=== PATIENT | male | born 1995 | race Caucasian/White ===

== ENCOUNTER 2017-12-25 23:52 | Emergency (ER) | payer MEDICAID ==
[~2017-12-25] VITALS: Ht 185.4 cm; Wt 98.1 kg
[2017-12-26 00:05] VITALS: Ht 185.4 cm; Wt 98.1 kg
[2017-12-26 07:00] VITALS: BP 147/89
== END 2017-12-26 06:58 | disposition home or self-care (01) ==
LOC: ED 23:52
DX: M79.671 Pain in right foot (principal)

== ENCOUNTER 2018-05-17 13:54 | Emergency (ER) | payer OTHER ==
[~2018-05-17] VITALS: Ht 182.9 cm; Wt 93.9 kg
[2018-05-17 14:03] VITALS: Ht 182.9 cm; Wt 93.9 kg
[2018-05-17 15:03] LABS: microscopic required? NO
[2018-05-17 15:11] LABS: UA SPECIFIC GRAVITY 1.015 (1.005-1.035); urine erythrocyte NEGATIVE (NEGATIVE)
[2018-05-17 15:12] LABS: BASOPHIL % 0.4 % (0-2); PLATELET COUNT 240 x10^3mcL (130-400)
[2018-05-17 15:21] LABS: AMPHETAMINE QUAL UR NONE DETECTED (See below)
[2018-05-17 15:29] LABS: CALCIUM 8.9 mg/dL (8.5-10.1); CARBON DIOXIDE 29.6 mmol/L (21-32); CHLORIDE SERUM 105 mmol/L (98-107); GFR1 > 60 mL/min; GLUCOSE SERUM 89 mg/dL (74-106); POTASSIUM SERUM 3.4 mmol/L (3.5-5.1); SODIUM SERUM 141 mmol/L (136-145)
[2018-05-17 15:36] LABS: ALBUMIN 4.1 g/dL (3.4-5.0); ALKALINE PHOSPHATASE 73 U/L (46-116); ALT/SGPT 42 U/L (16-63); AST/SGOT 26 U/L (15-37); BILIRUBIN TOTAL 0.75 mg/dL (0.20-1.00); TOTAL PROTEIN, SERUM 7.4 g/dL (6.4-8.2)
[2018-05-17 19:02] VITALS: BP 116/60
== END 2018-05-17 19:02 | disposition home or self-care (01) ==
LOC: ED 13:54
PROVIDERS: Emergency Medicine
DX: R10.9 Unspecified abdominal pain (principal); T45.0X1A Poisoning by antiallergic and antiemetic drugs, accidental (unintentional), initial encounter; Y92.89 Other specified places as the place of occurrence of the external cause
CPT/HCPCS: 36415; G0480; J7030